=== PATIENT | male | born 1975 | race Caucasian/White ===

== ENCOUNTER 2017-08-29 23:22 | Emergency (ER) | payer OTHER ==
[~2017-08-29] VITALS: Ht 188 cm; Wt 113.4 kg
[2017-08-29] MEDS ORDERED: SUBOXONE 8 MG-1 EAC2 SL (23:51)
[2017-08-30] MEDS ORDERED: ONDANSETRON HCL INJ 2 MG/ML VIAL IV STA (00:03)
[2017-08-30] MEDS ORDERED: SODIUM CHLORIDE 0.9% 1000ML 1,000 ML IV SCH (00:15)
[2017-08-30] MEDS ORDERED: DEXAMETHASONE SOD PHOS 10 MG/1 ML VIAL IV ONE (00:15)
[2017-08-30] MEDS ORDERED: METOCLOPRAMIDE HCL 10 MG/2ML VIAL IV ONE (00:15)
[2017-08-30] MEDS ORDERED: DIPHENHYDRAMINE HCL INJ 50 MG/ML VIAL IV ONE (00:15)
== END 2017-08-30 01:47 | disposition home or self-care (01) ==
LOC: FSED 23:22
DX: G43.019 Migraine without aura, intractable, without status migrainosus (principal); R11.2 Nausea with vomiting, unspecified; J11.1 Influenza due to unidentified influenza virus with other respiratory manifestations
CPT/HCPCS: 70450; 80048; 81003; 85025; 87400; 99283; J1100; J1200; J2405; J2765

== ENCOUNTER 2022-11-07 16:54 | Emergency (ER) | payer OTHER ==
[~2022-11-07] VITALS: Ht 185.4 cm; Wt 97.5 kg
[~2022-11-07 16:54] MED LIST: SUBOXONE 8 MG-1 EAC2 SL
[2022-11-07] MEDS ORDERED: SILVER SULFADIAZINE 50GM CREAM TOP STA (17:16)
[2022-11-07] MEDS ORDERED: MELOXICAM7.5 MG PO (17:20)
[2022-11-07] MEDS ORDERED: CEPHALEXIN500 MG PO (17:20)
[2022-11-07] MEDS ORDERED: SILVADENE20 GM TOP (17:20)
[2022-11-07 17:32] VITALS: BP 147/86
== END 2022-11-07 17:34 | disposition home or self-care (01) ==
LOC: FSED 16:59
DX: M79.652 Pain in left thigh (principal); T24.412A Corrosion of unspecified degree of left thigh, initial encounter; Y99.0 Civilian activity done for income or pay
CPT/HCPCS: 99283